=== PATIENT | female | born 1945 | race Caucasian/White ===

== ENCOUNTER 2016-09-28 10:34 | Emergency (ER) | payer OTHER, MEDICARE ==
[2016-09-28 10:52] LABS: COLOR YELLOW; LEUKOCYTE ESTERASE,URINE 3+ (NEGATIVE); NITRITE,URINE POSITIVE (NEGATIVE); PH,URINE 5.5 (5.0-7.5)
[2016-09-28 10:53] VITALS: BP 146/79; PULSE 99; RESP 18; TEMP 97.2; O2SAT 98
[2016-09-28 11:03] LABS: BACTERIA 2+ /hpf (NONE SEEN); WBC,URINE >182 /hpf (0-3)
--- NOTE | 2016-09-28 11:16 | UCPHY ---
H & P Time Seen by Provider: 09/28/16 10:57 Patient Type: Established HPI/ROS: This pt. reports dysuria starting yesterday associated with urgency. Today she notes cloudy urine in addition and she thinks that she has a bladder infection. She reports no other associated symptoms and no exac/allev. factors. ROS: No Fevers. No back pain. No vomiting. 5 pt. ROS is o/w negative. Past Medical/Surgical History: The patient has some intermittent fecal incontinence from previous transverse myelitis she thinks contributes to her UTIs. Hypothyroid Smoking Status: Never smoked Physical Exam: Physical Exam Vital signs are normal. General: No acute distress Lungs: No respiratory distress. Cardiac: Brisk capillary refill is intact throughout. Back: No CVA tenderness Abdomen: Soft, nontender Skin: No rash or pallor. Neuro: Alert and oriented x3 with no sensorimotor deficits. Initial differential diagnosis: Cystitis, interstitial cystitis, yeast infection Constitutional: Initial Vital Signs Temperature (C) 36.2 C 09/28/16 10:51 Heart Rate 99 09/28/16 10:51 Respiratory Rate 18 09/28/16 10:51 Blood Pressure 146/79 H 09/28/16 10:51 O2 Sat (%) 98 09/28/16 10:51 O2 Delivery Mode Room Air Allergies/Adverse Reactions: No Known Allergies Allergy (Verified 09/28/16 10:46) Home Medications: Medication Instructions Recorded Lisinopril 08/15/13 Multi Vitamin Daily 08/15/13 Lialda 09/23/13 Calcium 03/28/16 Myrtip 03/28/16 Cephalexin [Keflex (*)] 500 mg PO TID #15 cap 09/28/16 MDM/Departure - MDM Diagnostics: Urinalysis reveals pyuria and findings consistent with cystitis ED Course/Re-evaluation: I counseled the patient regarding cystitis. She appears clinically well without clinical evidence of pyelonephritis or other complicating factors at this time. - Depart Disposition: Home, Routine, Self-Care Clinical Impression: Cystitis Condition: Good Instructions: Urinary Tract Infection in Women (ED) Additional Instructions: Diagnosis: Bladder infection Drink plenty fluids Keflex antibiotic Return for any significant worsening despite treatment plan Prescriptions: Cephalexin [Keflex (*)] 500 mg PO TID #15 cap Referrals: ROGER REAL [Primary Care Provider] - As per Instructions - PQRS PQRS Measurement: 134: Depression screening and followup, PRIME MD-PHQ2 (12 years and older) Over the last 2 weeks, how often have you been bothered by any of the following problems? 1. Feeling down, depressed, or hopeless? 2. Little interest or pleasure in doing things? Patient answered no to both 1 and 2 130: Documentation of medications. Reviewed all patient medications, doses, route and frequency. 226: Do you smoke? [No.] 47: 65 and older: Advanced care planning. Patient designates surrogate decision maker as daughter-Yolanda Frances 51: 18 years old and older with diagnosis of COPD, spirometry performance. NA 52: 18 years old and older with COPD and symptoms of COPD or FEV1<60% predicted prescribed a B Agonist. NA
== END 2016-09-28 11:26 | disposition home or self-care (01) ==
LOC: CED 10:34
DX: N30.90 Cystitis, unspecified without hematuria (principal); R15.9 Full incontinence of feces
CPT/HCPCS: 81003-PO; 81015-PO; 99214-PO; G0463-PO